=== PATIENT | male | born 1985 | race Caucasian/White ===

== ENCOUNTER 2018-03-29 10:24 | Emergency (ER) | payer MEDICAID, OTHER ==
[2018-03-29 10:29] VITALS: BMI 27.1
--- NOTE | 2018-03-29 11:32 | C.PDOC ---
History Of Present Illness 33 y/o male presents to the ED complaining of cough, fever, and bodyaches for 6 days. Cough is productive of clear phlegm. No recent travel. Patient did not receive flu shot this year. No known sick contacts. Time Seen by Provider: 03/29/18 11:10 Chief Complaint (Nursing): Flu-like Symptoms History Per: Patient History/Exam Limitations: no limitations Onset/Duration Of Symptoms: Days Current Symptoms Are (Timing): Still Present Past Medical History Reviewed: Historical Data, Nursing Documentation, Vital Signs Vital Signs: Last Vital Signs Temp 101.8 F H 03/29/18 10:29 Pulse 97 H 03/29/18 10:29 Resp 18 03/29/18 10:29 BP 104/64 03/29/18 10:29 Pulse Ox 96 03/29/18 10:29 - Medical History PMH: No Chronic Diseases Surgical History: No Surg Hx Family History: States: No Known Family Hx - Social History Hx Alcohol Use: No Hx Substance Use: No - Immunization History Hx Tetanus Toxoid Vaccination: No Hx Influenza Vaccination: No Hx Pneumococcal Vaccination: No Review Of Systems Except As Marked, All Systems Reviewed And Found Negative. Constitutional: Positive for: Fever, Other (Bodyaches) Cardiovascular: Negative for: Chest Pain Respiratory: Positive for: Cough, Sputum (clear). Negative for: Shortness of Breath Gastrointestinal: Negative for: Vomiting, Diarrhea Skin: Negative for: Rash Neurological: Negative for: Weakness, Dizziness Physical Exam - Physical Exam Appears: Non-toxic, No Acute Distress Skin: Normal Color, Warm, Dry Head: Atraumatic, Normacephalic Eye(s): bilateral: Normal Inspection, PERRL, EOMI Ear(s): Bilateral: Normal Oral Mucosa: Moist Throat: Erythema (Tonsillar erythema and hypertrophy), No Exudate Neck: Normal ROM, Supple Chest: Symmetrical Cardiovascular: Rhythm Regular, No Murmur Respiratory: Normal Breath Sounds, No Rales, No Rhonchi, No Wheezing Extremity: Bilateral: Normal Color And Temperature, Normal ROM Pulses: Left Radial: Normal, Right Radial: Normal Neurological/Psych: Oriented x3, Normal Speech ED Course And Treatment O2 Sat by Pulse Oximetry: 96 (RA) Pulse Ox Interpretation: Normal Medical Decision Making Medical Decision Making: Impression: Viral illness Plan: --Flu swab --Rapid strep --Tylenol 975 mg PO Disposition Counseled Patient/Family Regarding: Studies Performed, Diagnosis, Need For Followup, Rx Given - Disposition Disposition: HOME/ ROUTINE Disposition Time: 14:49 Condition: STABLE Additional Instructions: follow up with your doctor within 2 days call to make an appointment take medications as prescribed return to ER if symptoms worsens or progress Prescriptions: Azithromycin [Zithromax] 250 mg PO DAILY #4 tab Naproxen [Naprosyn] 500 mg PO BID PRN #16 tab PRN Reason: Pain, Moderate (4-7) Oseltamivir Phosphate [Tamiflu] 75 mg PO BID #10 capsule Instructions: Acute Bronchitis, Flu, Adult (DC) Forms: [facility] ([place]), General Discharge Instructions, Work Excuse - Clinical Impression Clinical Impression: Influenza-like illness, Bronchitis - Scribe Statement The provider has reviewed the documentation as recorded by the Stefania Romero Provider Attestation: All medical record entries made by the Stefania were at my direction and personally dictated by me. I have reviewed the chart and agree that the record accurately reflects my personal performance of the history, physical exam, medical decision making, and the department course for this patient. I have also personally directed, reviewed, and agree with the discharge instructions and disposition.
[2018-03-29 14:36] LABS: INFLUENZA A B NEGATIVE FOR FLU A/B (NEGATIVE)
[2018-03-29 15:08] VITALS: BP 98/66; PULSE 69; RESP 20; TEMP 98.8; O2SAT 100
== END 2018-03-29 15:11 | disposition home or self-care (01) ==
LOC: C.ER 10:24
DX: J11.1 Influenza due to unidentified influenza virus with other respiratory manifestations (principal)